=== PATIENT | female | born 1995 | race Caucasian/White ===

== ENCOUNTER 2018-08-13 21:22 | Emergency (ER) | payer OTHER ==
[2018-08-13 21:34] VITALS: BP 146/82
--- NOTE | 2018-08-13 22:07 | EDM.PDOC ---
ED HPI GENERAL MEDICAL PROBLEM - General Chief Complaint: [employer]ER Problem Stated Complaint: bleeding vaginal heavy Time Seen by Provider: 08/13/18 21:35 Source of Information: Reports: Patient, Family History Limitations: Reports: No Limitations - History of Present Illness INITIAL COMMENTS - FREE TEXT/NARRATIVE: This is a 23-year-old female. She started her period 3-4 days ago states that she had increased bleeding that was heavier than normal. She had increased cramping especially 2 nights ago and last night and she noted tonight with increased cramping that her Mirena ring fell out about 45 minutes prior to coming to the ER when she was using the bathroom. She states that the Mirena ring is intact and she has it in a plastic bag in her car but due to the increased cramping and heavy bleeding she comes to the ER for evaluation. She's been seen several times by her [employer] doctor regarding heavy periods and cramping and the last time they checked her they said the Mirena ring was in correct position. The patient identifies the ring and the string and says it came out intact. She denies any other acute symptoms and she denies being . Lower Abdominal Pain Score (Numeric/FACES): 6 - Related Data Allergies Allergy/AdvReac Type Severity Reaction Status Date / Time adhesive Allergy Blisters Verified 08/13/18 21:33 ceftibuten dihydrate Allergy Hives Verified 08/13/18 21:33 [From Cedax] Home Meds: Home Meds Mupirocin 1 dose TOP BID PRN 09/20/14 [History] Amitriptyline [Elavil] 10 mg PO DAILY 08/13/18 [History] Past Medical History - Past Surgical History HEENT Surgical History: Reports: Myringotomy w Tube(s), Oral Surgery Social & Family History - Tobacco Use Smoking Status *Q: Never Smoker Second Hand Smoke Exposure: No - Caffeine Use Caffeine Use: Reports: Coffee - Recreational Drug Use Recreational Drug Use: No ED ROS GENERAL - Review of Systems Review Of Systems: See Below Constitutional: Denies: Fever, Chills HEENT: Reports: No Symptoms Respiratory: Reports: No Symptoms Cardiovascular: Reports: No Symptoms Endocrine: Reports: No Symptoms GI/Abdominal: Reports: Abdominal Pain. Denies: Nausea, Vomiting : Reports: Discharge, Pain, Other (Cramps) Musculoskeletal: Reports: No Symptoms Skin: Reports: No Symptoms Neurological: Reports: No Symptoms Psychiatric: Reports: No Symptoms Hematologic/Lymphatic: Reports: No Symptoms ED EXAM, GI/ABD - Physical Exam Exam: See Below Exam Limited By: No Limitations General Appearance: Alert, WD/WN, No Apparent Distress Eyes: Bilateral: Normal Appearance Ears: Normal External Exam Nose: Normal Inspection Throat/Mouth: Normal Inspection, Normal Lips, Normal Voice, No Airway Compromise Head: Normocephalic Neck: Supple Respiratory/Chest: No Respiratory Distress, Lungs Clear, Normal Breath Sounds Cardiovascular: Regular Rate, Rhythm, No Murmur GI/Abdominal Exam: Soft, Other (She has tenderness in the suprapubic area on palpation but no rebound no rigidity no guarding) (Female) Exam: Deferred (The exam was deferred by the patient since the Mirena ring has already come out intact.) Rectal (Female) Exam: Decreased Rectal Tone Back Exam: Full Range of Motion Extremities: Normal Inspection, Normal Range of Motion Neurological: Alert, Oriented Psychiatric: Normal Affect, Normal Mood Skin Exam: Warm, Dry Course - Vital Signs Last Recorded V/S: Last Vital Signs Temp 97.9 F 08/13/18 21:29 Pulse 100 08/13/18 21:29 Resp 16 08/13/18 21:29 BP 146/82 H 08/13/18 21:29 Pulse Ox 99 08/13/18 21:29 - Orders/Labs/Meds Labs: Laboratory Tests 08/13/18 08/13/18 Range/Units 22:20 22:20 WBC 9.16 (3.98-10.04) K/mm3 RBC 4.81 (3.98-5.22) M/mm3 Hgb 13.3 (11.2-15.7) gm/L Hct 39.3 (34.1-44.9) % MCV 81.7 (79.4-94.8) fl MCH 27.7 (25.6-32.2) pg MCHC 33.8 (32.2-35.5) g/dl RDW Std Deviation 40.4 (36.4-46.3) fL Plt Count 318 (182-369) K/mm3 MPV 9.2 L (9.4-12.3) fl Neut % (Auto) 64.1 (34.0-71.1) % Lymph % (Auto) 25.3 (19.3-51.7) % [place] % (Auto) 8.6 (4.7-12.5) % Eos % (Auto) 1.5 (0.7-5.8) Baso % (Auto) 0.3 (0.1-1.2) % Neut # (Auto) 5.86 (1.56-6.13) K/mm3 Lymph # (Auto) 2.32 (1.18-3.74) K/mm3 [place] # (Auto) 0.79 H (0.24-0.36) K/mm3 Eos # (Auto) 0.14 (0.04-0.36) K/mm3 Baso # (Auto) 0.03 (0.01-0.08) K/mm3 HCG, Qual Negative (NEGATIVE) - Re-Assessments/Exams Free Text/Narrative Re-Assessment/Exam: 08/13/18 23:04 Spoke to the patient regarding the hemoglobin of 13.3 and normal. She is not . She is to follow-up with her [employer] doctor next week or at least call her to let her know that the Mirena ring has fallen out. I did warn her that should her. Distilled to be somewhat heavy this time and probably some still cramping though it should be less since the ring has fallen out . Departure - Departure Time of Disposition: 23:06 Disposition: Home, Self-Care 01 Condition: Good Clinical Impression: Menorrhagia due to intrauterine device (IUD), Menstrual cramps - Discharge Information *PRESCRIPTION DRUG MONITORING PROGRAM REVIEWED*: Not Applicable *COPY OF PRESCRIPTION DRUG MONITORING REPORT IN PATIENT MIAN: Not Applicable Referrals: Sissy Piper MD [Primary Care Provider] - Forms: ED Department Discharge Additional Instructions: Expected still have some heavy bleeding for the next few days but the cramping should ease up since the IUD has been self removed, call your [employer] doctor on Wednesday regarding the loss of the IUD, return to the ER if needed
== END 2018-08-13 23:37 | disposition home or self-care (01) ==
LOC: JD.ED 21:22
DX: N92.0 Excessive and frequent menstruation with regular cycle (principal); Z91.09 Other allergy status, other than to drugs and biological substances; Z88.8 Allergy status to other drugs, medicaments and biological substances
CPT/HCPCS: 36415; 84703; 85025; 99284-25